=== PATIENT | female | born 1945 | race Caucasian/White ===

== ENCOUNTER → 2016-04-28 | Outpatient (CLI) | payer OTHER ==
[~2016-04-28] MED LIST: ADVIN25050 INH; ALBU1AER9 INH; ATOR-14 PO; ATV/1 PO; B-COTAB18 PO; CALC1CHW65 PO; CHOL100010 PO; CZR50 PO; FURO80TA63 PO; IBUP-1050 PO; LEVO125T72 PO; MELA5CAP PO; METO50TA16 PO; MULT-188 PO; MULT-506 PO; PANT40TA PO; POTA10CA28 PO; SNG10 PO
[2016-04-28 18:02] LABS: THYROID STIMULATING HORMONE 4.7 uIu/ml (0.300-4.500)
== END | disposition home or self-care (01) ==
LOC: C.LABPVFM 11:02
PROVIDERS: ATTEND Internal Medicine Endocrinology, Diabetes & Metabolism
DX: E03.9 Hypothyroidism, unspecified (principal)

== ENCOUNTER → 2016-05-19 | Outpatient (CLI) | payer OTHER | END | disposition home or self-care (01) | LOC: C.MAMM 11:26 | PROVIDERS: ATTEND Internal Medicine Endocrinology, Diabetes & Metabolism | DX: M81.0 Age-related osteoporosis without current pathological fracture (principal); E55.9 Vitamin D deficiency, unspecified; M85.80 Other specified disorders of bone density and structure, unspecified site; Z78.0 Asymptomatic menopausal state; Z82.62 Family history of osteoporosis ==

== ENCOUNTER → 2016-06-18 | Outpatient (CLI) | payer OTHER ==
[2016-06-18 12:59] LABS: ALT/SGPT 24 U/L (12-78); AST/SGOT 21 U/L (15-37); BLOOD UREA NITROGEN 27 mg/dl (7-18); BUN/CREATININE RATIO 28.3 (10-20); CALCIUM 8.5 mg/dl (8.5-10.1); CARBON DIOXIDE 30 mmol/L (21-32); CHLORIDE 105 mmol/L (98-107); CREATININE 0.97 mg/dl (0.60-1.20); GLUCOSE 109 mg/dl (70-99); POTASSIUM 4.4 mmol/L (3.5-5.1); SODIUM 141 mmol/L (136-145); TRIGLYCERIDES 136 mg/dl (0-150); VERY LOW DENSITY LIPOPROT CALC 27 mg/dl
[2016-06-18 13:01] LABS: ALB/GLOB RATIO 1.1 (0.9-2); ALKALINE PHOSPHATASE 72 U/L (45-117); CHOLESTEROL 159 mg/dl (0-200); CHOLESTEROL/HDL RATIO 3.2; HDL CHOLESTEROL 50 mg/dl; LDL CHOLESTEROL CALCULATED 82 mg/dl
[2016-06-18 13:06] LABS: THYROID STIMULATING HORMONE 4.66 uIu/ml (0.300-4.500)
[2016-06-18 13:31] LABS: ESTIMATED AVERAGE GLUCOSE 140 mg/dl; HA1C FLAG Normal (Normal)
== END | disposition home or self-care (01) ==
LOC: C.LABPVFM 09:12
PROVIDERS: ATTEND Internal Medicine Endocrinology, Diabetes & Metabolism
DX: R73.9 Hyperglycemia, unspecified (principal); E03.9 Hypothyroidism, unspecified; I10 Essential (primary) hypertension; E55.9 Vitamin D deficiency, unspecified; M81.0 Age-related osteoporosis without current pathological fracture; E06.3 Autoimmune thyroiditis; E78.5 Hyperlipidemia, unspecified

== ENCOUNTER → 2016-08-11 | Outpatient (CLI) | payer OTHER ==
--- NOTE | 2016-08-11 13:35 | DIAGNOSTIC IMAGING REPORT ---
CHEST 2 VIEWS ROUTINE HISTORY: LIGHTHEADED COMPARISON: Chest 05/15/2013. FINDINGS: The heart remains top normal in size. Poststernotomy changes. S-shaped scoliosis persist. No focal lung consolidations to suggest pneumonia. No evidence for pulmonary edema. No pleural effusions. No pneumothorax. Linear scarlike density at the left lower lobe favors scarring or atelectasis. IMPRESSION: No significant change compared to the prior study. No acute process. Electronically signed by: Roni Leonard M.D. 08/11/2016 1:33 PM Dictated Date/Time: 08/11/2016 1:31 PM
[2016-08-11 17:23] LABS: BASO % 0.5 %; BASO ABS # 0.03 K/uL (0-0.2); EOS % 1.3 %; HEMATOCRIT 40.2 % (37-47); IG% 0.3 %; LYMPH % 26.7 %; LYMPH ABS # 1.65 K/uL (1.2-3.4); MEAN CELL VOLUME 86.6 fL (80-100); MEAN CORPUSCULAR HEMOGLOBIN 28.7 pg (25-34); MEAN CORPUSCULAR HGB CONC 33.1 g/dl (32-36); MEAN PLATELET VOLUME 9.3 fL (7.4-10.4); MONO % 8.1 %; NEUT % 63.1 %; PLATELET COUNT 331 K/uL (130-400); RED BLOOD COUNT 4.64 M/uL (4.2-5.4); WHITE BLOOD COUNT 6.18 K/uL (4.8-10.8)
[2016-08-11 17:38] LABS: ESTIMATED AVERAGE GLUCOSE 143 mg/dl; HA1C FLAG Normal (Normal)
[2016-08-11 17:48] LABS: COMPLETE YES
== END | disposition home or self-care (01) ==
LOC: C.RADPV 13:14
PROVIDERS: ATTEND Family Medicine
DX: R42 Dizziness and giddiness (principal); R61 Generalized hyperhidrosis; E11.9 Type 2 diabetes mellitus without complications; F41.8 Other specified anxiety disorders

== ENCOUNTER → 2016-08-26 | Outpatient (CLI) | payer OTHER ==
[2016-08-26 17:51] LABS: CALCIUM 9.3 mg/dl (8.5-10.1)
[2016-08-26 18:07] LABS: THYROID STIMULATING HORMONE 0.499 uIu/ml (0.300-4.500)
== END | disposition home or self-care (01) ==
LOC: C.LABPVFM 11:38
PROVIDERS: ATTEND Internal Medicine Endocrinology, Diabetes & Metabolism
DX: I10 Essential (primary) hypertension (principal); M81.0 Age-related osteoporosis without current pathological fracture; E06.3 Autoimmune thyroiditis; E03.9 Hypothyroidism, unspecified

== ENCOUNTER → 2016-10-21 | Outpatient (CLI) | payer OTHER | END | disposition home or self-care (01) | LOC: C.CPL 10:45 | PROVIDERS: ATTEND Orthopaedic Surgery Sports Medicine | DX: M66.872 Spontaneous rupture of other tendons, left ankle and foot (principal) ==

== ENCOUNTER → 2016-11-06 | Outpatient (CLI) | payer OTHER ==
[2016-11-06 17:58] LABS: BLOOD UREA NITROGEN 25 mg/dl (7-18); BUN/CREATININE RATIO 28.2 (10-20); CALCIUM 10.3 mg/dl (8.5-10.1); CARBON DIOXIDE 34 mmol/L (21-32); CHLORIDE 104 mmol/L (98-107); CREATININE 0.89 mg/dl (0.60-1.20); GLUCOSE 129 mg/dl (70-99); POTASSIUM 3.6 mmol/L (3.5-5.1); SODIUM 145 mmol/L (136-145)
== END | disposition home or self-care (01) ==
LOC: C.LABPVFM 15:46
PROVIDERS: ATTEND Nurse Practitioner
DX: E87.6 Hypokalemia (principal)

== ENCOUNTER → 2016-11-20 | Outpatient (CLI) | payer OTHER ==
[2016-11-20 12:27] LABS: ALT/SGPT 27 U/L (12-78); BLOOD UREA NITROGEN 21 mg/dl (7-18); BUN/CREATININE RATIO 21.5 (10-20); CALCIUM 9.4 mg/dl (8.5-10.1); CARBON DIOXIDE 29 mmol/L (21-32); CHLORIDE 104 mmol/L (98-107); CHOLESTEROL 181 mg/dl (0-200); CREATININE 0.99 mg/dl (0.60-1.20); GLUCOSE 103 mg/dl (70-99); POTASSIUM 3.8 mmol/L (3.5-5.1); SODIUM 141 mmol/L (136-145)
[2016-11-20 12:37] LABS: ALKALINE PHOSPHATASE 69 U/L (45-117); AST/SGOT 18 U/L (15-37); CHOLESTEROL/HDL RATIO 3.3; HDL CHOLESTEROL 55 mg/dl; LDL CHOLESTEROL CALCULATED 96 mg/dl; TRIGLYCERIDES 149 mg/dl (0-150); VERY LOW DENSITY LIPOPROT CALC 30 mg/dl
[2016-11-20 13:05] LABS: ESTIMATED AVERAGE GLUCOSE 137 mg/dl; HA1C FLAG Normal (Normal)
== END | disposition home or self-care (01) ==
LOC: C.LABPVFM 08:55
PROVIDERS: ATTEND Family Medicine
DX: I10 Essential (primary) hypertension (principal); E03.9 Hypothyroidism, unspecified; E78.5 Hyperlipidemia, unspecified; F41.8 Other specified anxiety disorders; E11.9 Type 2 diabetes mellitus without complications

== ENCOUNTER → 2016-12-16 | Outpatient (CLI) | payer OTHER ==
[2016-12-16 17:44] LABS: BASO % 0.6 %; BASO ABS # 0.04 K/uL (0-0.2); COMPLETE YES; HEMATOCRIT 39.1 % (37-47); IG% 0.3 %; LYMPH % 29.5 %; LYMPH ABS # 2.12 K/uL (1.2-3.4); MEAN CELL VOLUME 86.5 fL (80-100); MEAN CORPUSCULAR HEMOGLOBIN 27.7 pg (25-34); MEAN PLATELET VOLUME 9.1 fL (7.4-10.4); MONO % 4.7 %; NEUT % 63.9 %; PLATELET COUNT 324 K/uL (130-400); RED BLOOD COUNT 4.52 M/uL (4.2-5.4); WHITE BLOOD COUNT 7.19 K/uL (4.8-10.8)
[2016-12-16 17:55] LABS: PROTHROMBIN TIME (PATIENT) 10.7 SECONDS (9.0-12.0)
== END | disposition home or self-care (01) ==
LOC: C.LABPVFM 13:59
PROVIDERS: ATTEND Family Medicine
DX: S20.20XA Contusion of thorax, unspecified, initial encounter (principal); X58.XXXA Exposure to other specified factors, initial encounter

== ENCOUNTER → 2017-01-27 | Outpatient (CLI) | payer OTHER ==
--- NOTE | 2017-01-27 13:17 | MAMMOGRAPHY REPORT ---
BILATERAL DIGITAL SCREENING MAMMOGRAM WITH CAD: 01/27/2017 CLINICAL HISTORY: Routine screening. Patient has no complaints. TECHNIQUE: Bilateral CC and MLO views were obtained. Current study was also evaluated with a Compute r Aided Detection (CAD) system. COMPARISON: Comparison is made to exams dated: 12/24/2015 mammogram, 12/21/2014 mammogram, 12/06/2013 m ammogram, 12/05/2012 mammogram, 12/03/2011 mammogram, and 12/01/2010 mammogram - [facility] ter. BREAST COMPOSITION: There are scattered areas of fibroglandular density in both breasts. FINDINGS: The parenchymal pattern is similar to prior mammograms. No developing mass, architectural distortion or cluster of suspicious microcalcifications is seen in either breast. IMPRESSION: ACR BI-RADS CATEGORY 2: BENIGN There is no mammographic evidence of malignancy. A 1 year screening mammogram is recommended. The pa tient will receive written notification of the results. Approximately 10% of breast cancers are not detected with mammography. A negative mammographic report should not delay biopsy if a clinically suggestive mass is present. Marian Lynch M.D. ay/:01/27/2017 12:27:21 Education Teacher: Paula DE DIOS(Leena)(Monica)([place]), [facility] letter sent: Normal 1/2 BI-RADS Code: ACR BI-RADS Category 2: Benign
== END | disposition home or self-care (01) ==
LOC: C.MAMM 11:14
PROVIDERS: ATTEND Family Medicine
DX: Z12.31 Encounter for screening mammogram for malignant neoplasm of breast (principal)

== ENCOUNTER → 2017-02-19 | Outpatient (CLI) | payer OTHER ==
[2017-02-19 13:08] LABS: ALT/SGPT 20 U/L (12-78); BLOOD UREA NITROGEN 26 mg/dl (7-18); BUN/CREATININE RATIO 33.3 (10-20); CALCIUM 9.2 mg/dl (8.5-10.1); CARBON DIOXIDE 29 mmol/L (21-32); CHLORIDE 105 mmol/L (98-107); CREATININE 0.77 mg/dl (0.60-1.20); GLUCOSE 92 mg/dl (70-99); POTASSIUM 4.2 mmol/L (3.5-5.1); SODIUM 141 mmol/L (136-145)
[2017-02-19 13:11] LABS: ALB/GLOB RATIO 1.1 (0.9-2); ALKALINE PHOSPHATASE 73 U/L (45-117); AST/SGOT 16 U/L (15-37)
== END | disposition home or self-care (01) ==
LOC: C.LABPVFM 10:27
PROVIDERS: ATTEND Family Medicine
DX: E11.9 Type 2 diabetes mellitus without complications (principal)

== ENCOUNTER → 2017-03-05 | Outpatient (CLI) | payer OTHER ==
[2017-03-05 13:10] LABS: CALCIUM 9.3 mg/dl (8.5-10.1)
[2017-03-05 13:25] LABS: THYROID STIMULATING HORMONE 0.944 uIu/ml (0.300-4.500)
[2017-03-05 13:37] LABS: ESTIMATED AVERAGE GLUCOSE 131 mg/dl; HA1C FLAG Normal (Normal)
== END | disposition home or self-care (01) ==
LOC: C.LABPVFM 08:08
PROVIDERS: ATTEND Internal Medicine Endocrinology, Diabetes & Metabolism
DX: E11.9 Type 2 diabetes mellitus without complications (principal); E03.9 Hypothyroidism, unspecified; M81.0 Age-related osteoporosis without current pathological fracture

== ENCOUNTER → 2017-06-18 | Outpatient (CLI) | payer OTHER ==
[2017-06-18 12:54] LABS: ALBUMIN 3.3 gm/dl (3.4-5.0); ALT/SGPT 24 U/L (12-78); AST/SGOT 16 U/L (15-37); BLOOD UREA NITROGEN 28 mg/dl (7-18); CALCIUM 9.6 mg/dl (8.5-10.1); CARBON DIOXIDE 30 mmol/L (21-32); CREATININE 0.77 mg/dl (0.60-1.20); GLUCOSE 101 mg/dl (70-99); POTASSIUM 4.2 mmol/L (3.5-5.1); SODIUM 140 mmol/L (136-145)
[2017-06-18 12:57] LABS: ALKALINE PHOSPHATASE 76 U/L (45-117); CHOLESTEROL 174 mg/dl (0-200); LDL CHOLESTEROL CALCULATED 93 mg/dl; TOTAL PROTEIN 6.6 gm/dl (6.4-8.2)
== END | disposition home or self-care (01) ==
LOC: C.LABPVFM 10:21
PROVIDERS: ATTEND Family Medicine
DX: I10 Essential (primary) hypertension (principal); E03.9 Hypothyroidism, unspecified; K21.9 Gastro-esophageal reflux disease without esophagitis; E11.9 Type 2 diabetes mellitus without complications; E78.5 Hyperlipidemia, unspecified; R42 Dizziness and giddiness; R26.89 Other abnormalities of gait and mobility

== ENCOUNTER → 2017-06-24 | Outpatient (CLI) | payer OTHER ==
--- NOTE | 2017-06-24 11:48 | DIAGNOSTIC IMAGING REPORT ---
R HIP UNILATERAL 2 VIEWS, SACRUM COCCYX MIN 2 VIEWS HISTORY: 71 years-old Female SI JOINT ARTHRITIS acute right hip and sacral pain COMPARISON: None available TECHNIQUE: 2 views of the right hip and 2 views of the sacrum and coccyx FINDINGS: RIGHT HIP: Moderate degenerative changes of the femoral acetabular joint. No acute fracture or subluxation identified. Calcifications of the right hemipelvis suggest phleboliths. SACRUM/COCCYX: There is mild joint space narrowing with subchondral sclerosis and marginal spurring involving the bilateral SI joints. No erosive changes to suggest sacroiliitis. Moderate degenerative changes of the pubic symphysis. Multilevel intervertebral disc space narrowing with endplate spurring and facet arthropathy of the imaged lower lumbar spine. There is 3 mm anterolisthesis L4 on L5 and also of L5 on S1 likely secondary to long-standing facet disease. No acute fracture or subluxation. IMPRESSION: 1. No acute fracture or subluxation identified involving the right hip, sacrum or coccyx. 2. Degenerative changes as above. The above report was generated using voice recognition software. It may contain grammatical, syntax or spelling errors. Electronically signed by: Davian Martinez M.D. 06/24/2017 11:46 AM Dictated Date/Time: 06/24/2017 11:43 AM
== END | disposition home or self-care (01) ==
LOC: C.RADPV 11:23
PROVIDERS: ATTEND Family Medicine
DX: M46.98 Unspecified inflammatory spondylopathy, sacral and sacrococcygeal region (principal)

== ENCOUNTER 2019-04-24 08:26 | Inpatient (IN) ==
[2019-04-24] MEDS ORDERED: ALBUT/IPRATROP 3MG/0.5MG NEB 3 ML VIAL INH STA (08:41)
[2019-04-24] MEDS ORDERED: SODIUM CHLORIDE 0.9% 1000ML 1,000 ML IV SCH (08:45)
--- NOTE | 2019-04-24 08:54 | Emergency Department Note ---
ED Provider Note CHIEF COMPLAINT: Short of breath, cough and congestion HISTORY OF PRESENTING ILLNESS: This is a 73-year-old female who presents to the emergency department by private vehicle with complaint of cough and congestion for the past 5 days and feeling short of breath. She states that this is been getting progressively worse and last night she had difficulty sleeping all night due to feeling short of breath. She has a history of asthma and states she has been using her inhaler but it was not helping last night. She reports some pain in her ribs with coughing, but otherwise denies any chest pain. She has had some chills but is unsure of any fevers. She did have a flu shot. She notes some sick contacts over the holidays with similar symptoms. She denies any headaches, neck pain or stiffness, back pain, abdominal pain, nausea or vomiti ng, urinary complaints, or unusual rash. She rates her pain level as 0/10. She does note that she has had bronchitis 3 times this year and was treated with antibiotics, most recently a few months ago. She denies being treated with steroids. REVIEW OF SYSTEMS: A complete 10 point review of systems was reviewed with the patient with pertinent positives and negatives as per history of present ill ness. All else were negative. PAST MEDICAL HISTORY: Hypertension, hyperlipidemia, type 2 diabetes, asthma, hypothyroidism, osteoporosis, depression and anxiety SOCIAL HISTORY: Lives at home with her , denies tobacco use (her is a smoker) ALLERGIES: Reviewed in chart and with the patient PHYSICAL EXAM: CONSTITUTIONAL: Pleasant and cooperative. Nontoxic-appearing and in no acute distress. Appears to feel generally unwell. Mildly dehydrated. HEENT: Normocephalic, atraumatic. PERRL, EOMI. TMs normal. Pharynx is not injected or erythematous, no tonsillar edema or exudate. Airway patent. Tacky mucous membranes. NECK: Supple, full active range of motion without discomfort. No nuchal rigidity or meningismus. No cervical adenopathy. RESPIRATORY: Diminished throughout with diffuse inspiratory and expiratory wheezing, no crackles, rhonchi, or stridor. Equal expansion bilaterally. CARDIOVASCULAR: Regular rate and rhythm with no murmurs, rubs or gallops. Normal peripheral perfusion, 2+ distal pulses in all 4 extremities. No pitting edema. GASTROINTESTINAL: Soft, nontender, nondistended. No rebound tenderness or guarding. No palpable masses or HSM. Bowel sounds present in all quadrants. No CVA tenderness bilaterally. MUSCULOSKELETAL: Full range of motion of all joints without discomfort. No tenderness or swelling in the calves bilaterally, negative Homans sign. INTEGUMENTARY: No rash or other significant dermatologic conditions noted. NEUROLOGIC: Alert and oriented X 4 with normal affect. Normal strength and sensation in all 4 extremities. Normal speech. Normal gait observed. ED COURSE AND MEDICAL DECISION MAKING: CC: Patient presenting with complaint of short of breath, cough and congestion DIFFERENTIAL DIAGNOSIS: Includes, but not limited to viral URI, bronchitis, pneumonia, asthma exacerbation, COPD, acute coronary syndrome, pulmonary em bolism, aortic dissection, pneumothorax, influenza, among others. INTERPRETATION OF LABS: Mild leukopenia, no anemia, normal platelets, no significant electrolyte abnormalities, normal renal function, normal liver enzymes. Troponin negative. Coagulation factors within normal limits. Influenza A/B negative. Urinalysis negative. IMAGING: XR chest 1V portable CLINICAL HISTORY: Dyspnea dyspnea COMPARISON STUDY: 10/21/2018 FINDINGS: Mild stable cardiomegaly. Diaphragms are smooth. Lungs are clear. Prior median sternotomy. IMPRESSION: Chronic and postoperative change. No acute process. EKG: Shows sinus rhythm with a rate of 84 bpm, normal intervals, frequent PACs, no significant ST or T wave abnormalities, no significant change when compared to previous EKG from 10/21/2018 by my interpretation. MEDICATION RECONCILIATION: I attest that I have personally reviewed the patient's current medication list. INITIAL VITAL SIGNS REVIEW: I reviewed the patient's initial vital signs and interpret them as follows: T: Afebrile; BP: Mildly hypertensive; HR: Mildly tachycardic; RR: Within normal limits; Pulse Ox: Within normal limits on room air. Blood pressure screening: The patient was found to have an elevated blood pressure and was referred to the inpatient team for further management. MDM SUMMARY: Patient was evaluated at bedside, history and physical exam performed. Patient is alert and oriented, in no acute distress, resting in the stretcher. Lungs are diminished throughout with diffuse wheezing, but no respiratory distress, nonlabored breathing and no tachypnea or hypoxia. She does appear mildly dehydrated clinically. No leg pain or swelling. She denies any chest pain. EKG reviewed at bedside, noting sinus rhythm with frequent PACs, no ischemic changes. Orders were placed at bedside for labs, influenza A/B, DuoNeb treatment for wheezing, IV fluid bolus for hydration, chest x-ray to evaluate for cardiopulmonary disease. Patient discussed with Dr. Euceda, who agrees with my assessment, plan, and disposition. Labs and imaging reviewed as above, no significant lab abnormalities noted. Influenza negative. Troponin negative. Chest x-ray is clear with no signs of pneumonia. Patient reassessed multiple times throughout ED stay, she has remained hemod ynamically stable and feels slightly improved after the initial DuoNeb treatment. On reassessment of her lungs she is moving air better, but continues to have diffuse wheezing. She was given additional neb treatments for a total of an hour-long neb as well as 50 mg p.o. prednisone. Nursing staff did notify me that the patient was dropping her sats down into the mid 80s as low as 86% on room air, she was placed on 2 L oxygen. Because of this, I did feel the patient should be admitted. I spoke with Dr. De Los Santos, [facility] Hospitalist, who agrees to evaluate the patient for admission. The patient was updated on all results and plan for admission, she verbalized understanding and was agreeable to this plan. The patient was stable at time of admission. The chart was completed utilizing Draft Speech voice recognition software. Grammatical errors, random word insertions, pronoun errors, and incomplete sentences are an occasional consequence of this system due to software limitations, ambient noise, and hardware issues. Any formal questions or concerns about the content, text, or information contained within the body of this dictation should be directly addressed to the nurse practitioner for clarification. Impression & Plan Acute respiratory failure with hypoxia, Asthma with exacerbation Past Med/Surg History Social History (Updated 03/15/19 @ 09:38 by aThira Geronimo) Preferred Language: [place] Communication Ability: Effective Educational Institution Curator Required: No Beliefs That Will Affect Care: None Current Living Situation: Spouse Other Information That Helps Us Care for You: No Feels Safe at Home: Yes Safety Concerns: Feels Safe At This Time Smoking Status: Never smoker Do You Dip or Chew Tobacco: No ; Second Hand Exposure: Yes ( smokes) ; Tobacco Cessation Education Requested by Patient: No Hx Alcohol Use: Yes Alcohol Intake Frequency Comment: Occasional Hx Substance Use: No Seatbelt Use: always Results & Data Vital Signs Vital Signs - 24 hr 04/24/19 08:28 04/24/19 09:03 04/24/19 09:04 Temperature 36.8 C Temperature Source Oral Pulse Rate 97 H 82 Pulse Rate [Right Finger] Pulse Rate from SpO2 Sensor 84 Pulse Rhythm [Right Finger] Pulse Strength [Right Finger] Respiratory Rate 20 16 Respiratory Effort / Characteristics Non-Labored Non-Labored Respiratory Depth Normal Normal Respiratory Pattern Regular Blood Pressure 134/76 136/76 Blood Pressure [Left Arm] Blood Pressure Mean 95 100 Blood Pressure Mean [Left Arm] Blood Pressure Position [Left Arm] Pulse Oximetry 94 93 93 Oxygen Delivery Method Room Air Room Air Oxygen Flow Rate Sepsis Recent Fever Within 48 Hours No Sepsis New/Unexplained Change in Mental Status No Sepsis Action Taken by Nursing No Action Required Oxygen Flow Rate - Titration Pulse Oximetry Post Tiitration 04/24/19 09:06 04/24/19 09:10 04/24/19 09:15 Temperature Temperature Source Pulse Rate 88 80 Pulse Rate [Right Finger] 86 82 Pulse Rate from SpO2 Sensor 91 H 76 Pulse Rhythm [Right Finger] Pulse Strength [Right Finger] Respiratory Rate 20 18 23 Respiratory Effort / Characteristics Non-Labored Non-Labored Spontaneous Respiratory Depth Normal Respiratory Pattern Blood Pressure Blood Pressure [Left Arm] 136/76 Blood Pressure Mean Blood Pressure Mean [Left Arm] 96 Blood Pressure Position [Left Arm] Pulse Oximetry 93 94 95 Oxygen Delivery Method Room Air Room Air Oxygen Flow Rate Sepsis Recent Fever Within 48 Hours Sepsis New/Unexplained Change in Mental Status Sepsis Action Taken by Nursing Oxygen Flow Rate - Titration Pulse Oximetry Post Tiitration 04/24/19 09:30 04/24/19 09:31 04/24/19 09:45 Temperature Temperature Source Pulse Rate 86 86 84 Pulse Rate [Right Finger] Pulse Rate from SpO2 Sensor 82 85 85 Pulse Rhythm [Right Finger] Pulse Strength [Right Finger] Respiratory Rate 14 22 17 Respiratory Effort / Characteristics Respiratory Depth Respiratory Pattern Blood Pressure 168/82 H Blood Pressure [Left Arm] Blood Pressure Mean 111 Blood Pressure Mean [Left Arm] Blood Pressure Position [Left Arm] Pulse Oximetry 95 95 92 Oxygen Delivery Method Oxygen Flow Rate Sepsis Recent Fever Within 48 Hours Sepsis New/Unexplained Change in Mental Status Sepsis Action Taken by Nursing Oxygen Flow Rate - Titration Pulse Oximetry Post Tiitration 04/24/19 10:00 04/24/19 10:01 04/24/19 10:15 Temperature Temperature Source Pulse Rate 83 85 88 Pulse Rate [Right Finger] 87 Pulse Rate from SpO2 Sensor 86 80 80 Pulse Rhythm [Right Finger] Pulse Strength [Right Finger] Respiratory Rate 19 25 H 21 Respiratory Effort / Characteristics Respiratory Depth Respiratory Pattern Blood Pressure 163/78 H Blood Pressure [Left Arm] 163/78 H Blood Pressure Mean 109 Blood Pressure Mean [Left Arm] 106 Blood Pressure Position [Left Arm] Pulse Oximetry 92 91 90 Oxygen Delivery Method Room Air Oxygen Flow Rate Sepsis Recent Fever Within 48 Hours Sepsis New/Unexplained Change in Mental Status Sepsis Action Taken by Nursing Oxygen Flow Rate - Titration Pulse Oximetry Post Tiitration 04/24/19 10:30 04/24/19 10:31 04/24/19 10:38 Temperature Temperature Source Pulse Rate 92 H 94 H Pulse Rate [Right Finger] 78 Pulse Rate from SpO2 Sensor 94 H 88 Pulse Rhythm [Right Finger] Pulse Strength [Right Finger] Respiratory Rate 14 19 14 Respiratory Effort / Characteristics Non-Labored Spontaneous Respiratory Depth Respiratory Pattern Blood Pressure 132/111 H Blood Pressure [Left Arm] Blood Pressure Mean 128 Blood Pressure Mean [Left Arm] Blood Pressure Position [Left Arm] Pulse Oximetry 94 94 100 Oxygen Delivery Method Room Air Oxygen Flow Rate Sepsis Recent Fever Within 48 Hours Sepsis New/Unexplained Change in Mental Status Sepsis Action Taken by Nursing Oxygen Flow Rate - Titration Pulse Oximetry Post Tiitration 04/24/19 10:45 04/24/19 11:00 04/24/19 11:01 Temperature Temperature Source Pulse Rate 82 103 H 101 H Pulse Rate [Right Finger] Pulse Rate from SpO2 Sensor 82 97 H 99 H Pulse Rhythm [Right Finger] Pulse Strength [Right Finger] Respiratory Rate 22 20 18 Respiratory Effort / Characteristics Respiratory Depth Respiratory Pattern Blood Pressure 163/72 H Blood Pressure [Left Arm] Blood Pressure Mean 105 Blood Pressure Mean [Left Arm] Blood Pressure Position [Left Arm] Pulse Oximetry 100 87 L 96 Oxygen Delivery Method Oxygen Flow Rate Sepsis Recent Fever Within 48 Hours Sepsis New/Unexplained Change in Mental Status Sepsis Action Taken by Nursing Oxygen Flow Rate - Titration Pulse Oximetry Post Tiitration 04/24/19 11:15 04/24/19 11:30 04/24/19 11:31 Temperature Temperature Source Pulse Rate 102 H 101 H 102 H Pulse Rate [Right Finger] 105 H Pulse Rate from SpO2 Sensor 104 H 103 H 101 H Pulse Rhythm [Right Finger] Regular Pulse Strength [Right Finger] Normal Respiratory Rate 20 19 14 Respiratory Effort / Characteristics Non-Labored Spontaneous Respiratory Depth Normal Respiratory Pattern Regular Blood Pressure 160/75 H Blood Pressure [Left Arm] 160/75 H Blood Pressure Mean 109 Blood Pressure Mean [Left Arm] 103 Blood Pressure Position [Left Arm] Sitting Pulse Oximetry 93 93 92 Oxygen Delivery Method Room Air Oxygen Flow Rate Sepsis Recent Fever Within 48 Hours Sepsis New/Unexplained Change in Mental Status Sepsis Action Taken by Nursing Oxygen Flow Rate - Titration Pulse Oximetry Post Tiitration 04/24/19 11:45 04/24/19 12:00 04/24/19 12:01 Temperature Temperature Source Pulse Rate 104 H 99 H 102 H Pulse Rate [Right Finger] Pulse Rate from SpO2 Sensor 107 H 99 H 104 H Pulse Rhythm [Right Finger] Pulse Strength [Right Finger] Respiratory Rate 25 H 21 18 Respiratory Effort / Characteristics Respiratory Depth Respiratory Pattern Blood Pressure 138/73 Blood Pressure [Left Arm] Blood Pressure Mean 107 Blood Pressure Mean [Left Arm] Blood Pressure Position [Left Arm] Pulse Oximetry 93 89 L 86 L Oxygen Delivery Method Nasal Cannula Oxygen Flow Rate 0 Sepsis Recent Fever Within 48 Hours Sepsis New/Unexplained Change in Mental Status Sepsis Action Taken by Nursing Oxygen Flow Rate - Titration 2 Pulse Oximetry Post Tiitration 98 04/24/19 12:21 04/24/19 12:22 04/24/19 12:23 Temperature Temperature Source Pulse Rate 105 H 104 H 104 H Pulse Rate [Right Finger] Pulse Rate from SpO2 Sensor 108 H 106 H 105 H Pulse Rhythm [Right Finger] Pulse Strength [Right Finger] Respiratory Rate 20 17 18 Respiratory Effort / Characteristics Respiratory Depth Respiratory Pattern Blood Pressure 165/76 H Blood Pressure [Left Arm] Blood Pressure Mean 102 Blood Pressure Mean [Left Arm] Blood Pressure Position [Left Arm] Pulse Oximetry 96 98 98 Oxygen Delivery Method Nasal Cannula Nasal Cannula Oxygen Flow Rate 2 2 Sepsis Recent Fever Within 48 Hours Sepsis New/Unexplained Change in Mental Status Sepsis Action Taken by Nursing Oxygen Flow Rate - Titration Pulse Oximetry Post Tiitration 04/24/19 12:30 04/24/19 12:31 04/24/19 12:45 Temperature Temperature Source Pulse Rate 105 H 98 H 104 H Pulse Rate [Right Finger] Pulse Rate from SpO2 Sensor 109 H 98 H 105 H Pulse Rhythm [Right Finger] Pulse Strength [Right Finger] Respiratory Rate 20 20 19 Respiratory Effort / Characteristics Respiratory Depth Respiratory Pattern Blood Pressure 135/92 Blood Pressure [Left Arm] Blood Pressure Mean 111 Blood Pressure Mean [Left Arm] Blood Pressure Position [Left Arm] Pulse Oximetry 98 96 96 Oxygen Delivery Method Oxygen Flow Rate Sepsis Recent Fever Within 48 Hours Sepsis New/Unexplained Change in Mental Status Sepsis Action Taken by Nursing Oxygen Flow Rate - Titration Pulse Oximetry Post Tiitration 04/24/19 13:00 04/24/19 13:01 04/24/19 13:15 Temperature Temperature Source Pulse Rate 100 H 96 H 92 H Pulse Rate [Right Finger] Pulse Rate from SpO2 Sensor 100 H 98 H 92 H Pulse Rhythm [Right Finger] Pulse Strength [Right Finger] Respiratory Rate 23 24 20 Respiratory Effort / Characteristics Respiratory Depth Respiratory Pattern Blood Pressure 128/56 L Blood Pressure [Left Arm] Blood Pressure Mean 84 Blood Pressure Mean [Left Arm] Blood Pressure Position [Left Arm] Pulse Oximetry 98 98 96 Oxygen Delivery Method Oxygen Flow Rate Sepsis Recent Fever Within 48 Hours Sepsis New/Unexplained Change in Mental Status Sepsis Action Taken by Nursing Oxygen Flow Rate - Titration Pulse Oximetry Post Tiitration 04/24/19 13:30 04/24/19 13:31 04/24/19 13:32 Temperature Temperature Source Pulse Rate 101 H 105 H 98 H Pulse Rate [Right Finger] Pulse Rate from SpO2 Sensor 102 H 102 H 93 H Pulse Rhythm [Right Finger] Pulse Strength [Right Finger] Respiratory Rate 20 18 26 H Respiratory Effort / Characteristics Respiratory Depth Respiratory Pattern Blood Pressure 156/67 H Blood Pressure [Left Arm] Blood Pressure Mean 105 Blood Pressure Mean [Left Arm] Blood Pressure Position [Left Arm] Pulse Oximetry 97 96 96 Oxygen Delivery Method Oxygen Flow Rate Sepsis Recent Fever Within 48 Hours Sepsis New/Unexplained Change in Mental Status Sepsis Action Taken by Nursing Oxygen Flow Rate - Titration Pulse Oximetry Post Tiitration 04/24/19 13:45 04/24/19 14:00 04/24/19 14:15 Temperature Temperature Source Pulse Rate 103 H 94 H 93 H Pulse Rate [Right Finger] Pulse Rate from SpO2 Sensor 95 H 93 H 95 H Pulse Rhythm [Right Finger] Pulse Strength [Right Finger] Respiratory Rate 20 18 23 Respiratory Effort / Characteristics Respiratory Depth Respiratory Pattern Blood Pressure 136/81 Blood Pressure [Left Arm] Blood Pressure Mean 95 Blood Pressure Mean [Left Arm] Blood Pressure Position [Left Arm] Pulse Oximetry 95 95 95 Oxygen Delivery Method Oxygen Flow Rate Sepsis Recent Fever Within 48 Hours Sepsis New/Unexplained Change in Mental Status Sepsis Action Taken by Nursing Oxygen Flow Rate - Titration Pulse Oximetry Post Tiitration 04/24/19 14:30 04/24/19 14:31 04/24/19 14:45 Temperature Temperature Source Pulse Rate 99 H 94 H 89 Pulse Rate [Right Finger] Pulse Rate from SpO2 Sensor 98 H 93 H 90 Pulse Rhythm [Right Finger] Pulse Strength [Right Finger] Respiratory Rate 21 20 22 Respiratory Effort / Characteristics Respiratory Depth Respiratory Pattern Blood Pressure 153/91 H Blood Pressure [Left Arm] Blood Pressure Mean 102 Blood Pressure Mean [Left Arm] Blood Pressure Position [Left Arm] Pulse Oximetry 96 94 95 Oxygen Delivery Method Oxygen Flow Rate Sepsis Recent Fever Within 48 Hours Sepsis New/Unexplained Change in Mental Status Sepsis Action Taken by Nursing Oxygen Flow Rate - Titration Pulse Oximetry Post Tiitration 04/24/19 15:00 04/24/19 15:01 04/24/19 15:06 Temperature 36.8 C Temperature Source Oral Pulse Rate 93 H 85 87 Pulse Rate [Right Finger] Pulse Rate from SpO2 Sensor 94 H 86 Pulse Rhythm [Right Finger] Pulse Strength [Right Finger] Respiratory Rate 13 27 H 18 Respiratory Effort / Characteristics Respiratory Depth Respiratory Pattern Blood Pressure 146/104 H 146/104 H Blood Pressure [Left Arm] Blood Pressure Mean 124 Blood Pressure Mean [Left Arm] Blood Pressure Position [Left Arm] Pulse Oximetry 96 96 96 Oxygen Delivery Method Nasal Cannula Oxygen Flow Rate 2 Sepsis Recent Fever Within 48 Hours Sepsis New/Unexplained Change in Mental Status Sepsis Action Taken by Nursing Oxygen Flow Rate - Titration Pulse Oximetry Post Tiitration Laboratory Data Result diagrams: 04/24/19 08:50 04/24/19 08:50 Lab Results 04/24/19 04/24/19 04/24/19 Range/Units 08:45 08:50 08:50 WBC 3.92 L (4.8-10.8) K/uL RBC 4.33 (4.2-5.4) M/uL Hgb 11.9 L (12.0-16.0) g/dL Hct 37.8 (37-47) % MCV 87.3 (80-100) fL MCH 27.5 (25-34) pg MCHC 31.5 L (32-36) g/dL RDW Std Deviation 43.5 (36.4-46.3) fL RDW Coeff of Jeri 13.6 (11.5-14.5) % Plt Count 205 (130-400) K/uL MPV 8.6 (7.4-10.4) fL Immature Gran % (Auto) 0.3 % Neut % (Auto) 64.6 % Lymph % (Auto) 24.7 % [place] % (Auto) 6.6 % Eos % (Auto) 3.3 % Baso % (Auto) 0.5 % Immature Gran # (Auto) 0.01 (0.00-0.02) K/uL Neut # (Auto) 2.53 (1.4-6.5) K/uL Lymph # (Auto) 0.97 L (1.2-3.4) K/uL [place] # (Auto) 0.26 (0.11-0.59) K/uL Eos # (Auto) 0.13 (0-0.5) K/uL Baso # (Auto) 0.02 (0-0.2) K/uL PT 10.3 (9.0-12.0) Seconds INR 1.0 (0.9-1.1) APTT 26.2 (21.0-31.0) Seconds PTT Ratio 1.0 Sodium (136-145) mmol/L Potassium (3.5-5.1) mmol/L Chloride (98-107) mmol/L Carbon Dioxide (21-32) mmol/L Anion Gap (3-11) BUN (7-18) mg/dl Creatinine (0.6-1.2) mg/dl Est Cr Clr Drug Dosing ml/min Est GFR ( Amer) Est GFR (Non-Af Amer) BUN/Creatinine Ratio (10-20) Glucose (70-99) mg/dl Calcium (8.5-10.1) mg/dl Total Bilirubin (0.2-1) mg/dl AST (15-37) U/L ALT (12-78) U/L Alkaline Phosphatase (45-117) U/L Troponin I (0-0.045) ng/ml Total Protein (6.4-8.2) gm/dl Albumin (3.4-5.0) gm/dl Globulin (2.5-4.0) gm/dl Albumin/Globulin Ratio (0.9-2) Urine Color Urine Appearance (Clear) Urine pH (4.5-7.5) Ur Specific [place] (1.000-1.030) Urine Protein (Negative) Urine Glucose (UA) (Negative) Urine Ketones (Negative) Urine Blood (Negative) Urine Nitrite (Negative) Urine Bilirubin (Negative) Urine Urobilinogen (Negative) Ur Leukocyte Esterase (Negative) Influenza Type A (PCR) Neg for Influ A (Neg) Influenza Type B (PCR) Neg for Influ B (Neg) 04/24/19 04/24/19 Range/Units 08:50 12:22 WBC (4.8-10.8) K/uL RBC (4.2-5.4) M/uL Hgb (12.0-16.0) g/dL Hct (37-47) % MCV (80-100) fL MCH (25-34) pg MCHC (32-36) g/dL RDW Std Deviation (36.4-46.3) fL RDW Coeff of Jeri (11.5-14.5) % Plt Count (130-400) K/uL MPV (7.4-10.4) fL Immature Gran % (Auto) % Neut % (Auto) % Lymph % (Auto) % [place] % (Auto) % Eos % (Auto) % Baso % (Auto) % Immature Gran # (Auto) (0.00-0.02) K/uL Neut # (Auto) (1.4-6.5) K/uL Lymph # (Auto) (1.2-3.4) K/uL [place] # (Auto) (0.11-0.59) K/uL Eos # (Auto) (0-0.5) K/uL Baso # (Auto) (0-0.2) K/uL PT (9.0-12.0) Seconds INR (0.9-1.1) APTT (21.0-31.0) Seconds PTT Ratio Sodium 142 (136-145) mmol/L Potassium 4.1 (3.5-5.1) mmol/L Chloride 107 (98-107) mmol/L Carbon Dioxide 31 (21-32) mmol/L Anion Gap 4.0 (3-11) BUN 20 H (7-18) mg/dl Creatinine 0.81 (0.6-1.2) mg/dl Est Cr Clr Drug Dosing 59.4 ml/min Est GFR ( Amer) 84.1 Est GFR (Non-Af Amer) 72.6 BUN/Creatinine Ratio 24.7 H (10-20) Glucose 112 H (70-99) mg/dl Calcium 8.6 (8.5-10.1) mg/dl Total Bilirubin 0.2 (0.2-1) mg/dl AST 13 L (15-37) U/L ALT 21 (12-78) U/L Alkaline Phosphatase 72 (45-117) U/L Troponin I < 0.015 (0-0.045) ng/ml Total Protein 6.3 L (6.4-8.2) gm/dl Albumin 3.1 L (3.4-5.0) gm/dl Globulin 3.2 (2.5-4.0) gm/dl Albumin/Globulin Ratio 1.0 (0.9-2) Urine Color Yellow Urine Appearance Clear (Clear) Urine pH 6.0 (4.5-7.5) Ur Specific [place] 1.009 (1.000-1.030) Urine Protein Negative (Negative) Urine Glucose (UA) Negative (Negative) Urine Ketones Negative (Negative) Urine Blood Negative (Negative) Urine Nitrite Negative (Negative) Urine Bilirubin Negative (Negative) Urine Urobilinogen Negative (Negative) Ur Leukocyte Esterase Negative (Negative) Influenza Type A (PCR) (Neg) Influenza Type B (PCR) (Neg) Administered Medications Discontinued Medications Albuterol (Duoneb) 3 ml INH NOW STA Stop: 04/24/19 08:42 Last Admin: 04/24/19 09:15 Dose: 3 ml Documented by: [id number] Albuterol (Duoneb) 9 ml NEB ONE ONE Stop: 04/24/19 10:23 Last Admin: 04/24/19 10:38 Dose: 9 ml Documented by: [id number] Sodium Chloride (Nss 1000ml) 1,000 mls @ 999 mls/hr IV .Q1H1M FRANCES Stop: 04/24/19 09:45 Last Infusion: 04/24/19 10:41 Dose: 0 mls/hr Documented by: [id number] Admin: 04/24/19 09:15 Dose: 999 mls/hr Documented by: [id number] Prednisone (Prednisone) 50 mg PO NOW STA Stop: 04/24/19 10:23 Last Admin: 04/24/19 10:39 Dose: 50 mg Documented by: [id number] Discharge Plan Visit Data Chief Complaint: Shortness of Breath/Dyspnea Stated Complaint: sob ED Provider: Allan Euceda ED Midlevel Provider: Tatum Rodriguez Discharge Problem: Acute respiratory failure with hypoxia, Asthma with exacerbation Patient Disposition: Admitted As Inpatient Condition: Fair Discharge Instructions Interventions: ED Discharge Assessment Last Done: 04/24/19 15:06 Forms Stand Alone Forms: [facility] [employer] Prescriptions Prescriptions: No Action calcitriol 0.5 mcg capsule 0.5 mcg PO QAM Qty: 180 RF: 0 calcium carbonate 600 mg calcium (1,500 mg) tablet 600 mg PO HS RF: 0 fluticasone propionate 50 mcg/actuation spray,suspension 2 spray intranasal BID Qty: 16 RF: 0 meclizine 25 mg tablet 25 mg PO TID PRN (Reason: Dizziness) Qty: 40 RF: 0 cholecalciferol (vitamin D3) 5,000 unit tablet 5,000 unit PO HS RF: 0 albuterol sulfate 90 mcg/actuation HFA aerosol inhaler 2 puff inhalation DAILY PRN (Reason: Shortness Of Breath Or Wheezing) Qty: 1 RF: 0 multivitamin [Daily Multi-Vitamin] tablet 1 tab PO HS RF: 0 (DME) OneTouch Verio strip See Dose Instructions .ROUTE .MEDSUPPLY Qty: 10 RF: 0 (DME) lancets [OneTouch UltraSoft Lancets] misc See Dose Instructions .ROUTE .MEDSUPPLY Qty: 50 RF: 0 atorvastatin 20 mg tablet 20 mg PO QAM RF: 0 citalopram 10 mg tablet 10 mg PO QAM RF: 0 levothyroxine 100 mcg tablet 100 mcg PO QAM RF: 0 omeprazole 20 mg capsule,delayed release(DR/EC) 20 mg PO QAM RF: 0 hydrochlorothiazide 25 mg tablet 25 mg PO QAM RF: 0 losartan 100 mg tablet 100 mg PO QAM RF: 0 metformin 500 mg tablet extended release 24 hr 500 mg PO QAM RF: 0 Slow-Mag 71.5 mg tablet,delayed release (DR/EC) 71.5 mg PO QAM RF: 0 Referrals Referrals: Jayne Valera MD [Primary Care Provider] -
[2019-04-24 09:04] LABS: Basophils # (auto) 0.02 K/uL (0-0.2); Basophils % (auto) 0.5 %; Eosinophils # (auto) 0.13 K/uL (0-0.5); Eosinophils % (auto) 3.3 %; Hematocrit (blood only) 37.8 % (37-47); Hemoglobin 11.9 g/dL (12.0-16.0); Immature Granulocytes # (auto) 0.01 K/uL (0.00-0.02); Immature Granulocytes % (auto) 0.3 %; Lymphocytes # (auto) 0.97 K/uL (1.2-3.4); Lymphocytes % (auto) 24.7 %; Mean Corpuscular Hemoglobin 27.5 pg (25-34); Mean Corpuscular Hgb Conc 31.5 g/dL (32-36); Mean Corpuscular Volume 87.3 fL (80-100); Mean Platelet Volume 8.6 fL (7.4-10.4); Monocytes # (auto) 0.26 K/uL (0.11-0.59); Monocytes % (auto) 6.6 %; Neutrophils # (auto) 2.53 K/uL (1.4-6.5); Neutrophils % (auto) 64.6 %; Platelet Count 205 K/uL (130-400); RDW Coefficient of Variation 13.6 % (11.5-14.5); RDW Standard Deviation 43.5 fL (36.4-46.3); Red Blood Count 4.33 M/uL (4.2-5.4); White Blood Count 3.92 K/uL (4.8-10.8)
--- NOTE | 2019-04-24 09:07 | XRay Report ---
XR chest 1V portable CLINICAL HISTORY: Dyspnea dyspnea COMPARISON STUDY: 10/21/2018 FINDINGS: Mild stable cardiomegaly. Diaphragms are smooth. Lungs are clear. Prior median sternotomy. IMPRESSION: Chronic and postoperative change. No acute process. ACT 112: Negative or not required by law. The above report was generated using voice recognition software. It may contain grammatical, syntax or spelling errors. Electronically signed by: Corey Olmedo M.D. 04/24/2019 9:06 AM
[2019-04-24 09:11] LABS: Partial Thromboplastin Time 26.2 Seconds (21.0-31.0); Prothrombin Time 10.3 Seconds (9.0-12.0)
[2019-04-24 09:18] LABS: Alanine Aminotransferase 21 U/L (12-78); Albumin Level 3.1 gm/dl (3.4-5.0); Aspartate Aminotransferase 13 U/L (15-37); BUN Creatinine Ratio 24.7 (10-20); Blood Urea Nitrogen 20 mg/dl (7-18); Calcium 8.6 mg/dl (8.5-10.1); Carbon Dioxide 31 mmol/L (21-32); Chloride 107 mmol/L (98-107); Creatinine Clr Calc Pharmacy 59.4 ml/min; Est GFR (African American) 84.1; Est GFR (Non-African American) 72.6; Glucose 112 mg/dl (70-99); Potassium 4.1 mmol/L (3.5-5.1); Sodium 142 mmol/L (136-145)
[2019-04-24 09:22] LABS: Alkaline Phosphatase 72 U/L (45-117); Bilirubin,Total 0.2 mg/dl (0.2-1); Globulin 3.2 gm/dl (2.5-4.0); Total Protein 6.3 gm/dl (6.4-8.2); Troponin I < 0.015 ng/ml (0-0.045)
[2019-04-24 09:31] LABS: Influenza A virus by PCR Neg for Influ A (Neg); Influenza B virus by PCR Neg for Influ B (Neg)
[2019-04-24] MEDS ORDERED: ALBUT/IPRATROP 3MG/0.5MG NEB 3 ML VIAL NEB ONE (10:22)
[2019-04-24] MEDS ORDERED: predniSONE 50 MG TAB PO STA (10:22)
[2019-04-24 12:35] LABS: Appearance Urine Clear (Clear); Bilirubin Urine Negative (Negative); Blood Urine Negative (Negative); Color Urine Yellow; Glucose Urine UA Negative (Negative); Ketones Urine Negative (Negative); Leukocyte Esterase Urine Negative (Negative); Nitrite Urine Negative (Negative); Protein Urine Negative (Negative); Specific Gravity Urine 1.009 (1.000-1.030); Urobilinogen Urine Negative (Negative)
--- NOTE | 2019-04-24 14:15 | History & Physical Report ---
Date of Service April 24, 2019 Assessment & Plan (1) Acute respiratory failure with hypoxia: 73-year-old female with history of asthma presenting with 5 days of progressive shortness of breath and chest congestion. Patient hypoxic on arrival requiring supplemental oxygen. Diminished breath sounds bilaterally with diffuse inspiratory and expiratory wheezing. Findings most consistent with acute exacerbation of asthma in setting of possible URI Admit to medical floor Supplemental oxygen as needed to maintain saturation greater than 94% Albuterol every 2 hours as needed Prednisone 50 mg p.o. daily Magnesium x1 g Continue Flonase Mucinex Nasal saline Incentive spirometer Present on Admission?: Yes (2) Asthma with exacerbation: Plan as above Present on Admission?: Yes (3) Depression with anxiety: Chronic. Stable. Well-controlled on home medication regimen Continue Celexa 10 mg p.o. every morning Present on Admission?: Yes (4) Hypothyroidism: Chronic. Stable. Check TSH with a.m. labs Continue Synthroid 100 mcg p.o. daily Present on Admission?: Yes (5) Hyperlipidemia: Chronic. Stable. Continue atorvastatin 20 mg p.o. every morning Present on Admission?: Yes (6) DM (diabetes mellitus), type 2: Well-controlled. Blood sugar = 112. Patient has not taken metformin recently. Manages her diabetes with diet. Last hemoglobin A1c = 6.4 in April 2018 (prior values of 6.2 and 6.3) Consistent carb diet Monitor blood sugar with a.m. labs. If elevated would add fingersticks and sliding scale coverage Present on Admission?: Yes (7) Hypertension: Blood pressure mildly elevated at 156/67. Continue hydrochlorothiazide 25 mg p.o. every morning Continue Cozaar 100 mg p.o. daily Continue to monitor F/E/N -Hep-Lock. Monitor electrolytes and replete as needed. Consistent carb diet as tolerated ProphylaxisLovenox for DVT prophylaxis Codefull Dispoadmit to medical floor Present on Admission?: Yes History of Present Illness Chief Complaint: Shortness of breath Primary Care Provider: Jayne Valera MD Regina Monzon is a pleasant 73-year-old female presenting with chest congestion and shortness of breath, dry cough and wheeze. Symptoms have been persistent and progressing over the last 5 days. Today she reports her shortness of breath was so severe that she had a difficult time ambulating. She also reports some chills but no fever. She has been taking her albuterol inhaler at home up to 4 times daily with minimal relief. No additional complaints at this time. Specifically, no fever/sweats/malaise. No chest pain/palpitations/orthopnea/weight gain/edema. No abdominal pain/nausea/vomiting/diarrhea/constipation. Patient hypoxic to 86% on room air which improved with 2 L of supplemental oxygen by nasal cannula + Sick contactsfamily member with URI No recent travel ER course - Albuterol, Prednisone, NSS Allergies Allergy/AdvReac Type Severity Reaction Status Date / Time lisinopril Allergy Unknown COUGH Verified 04/24/19 09:13 Home Medications Home Medications Medication Instructions Recorded Confirmed Type calcium carbonate 600 mg calcium 600 mg PO HS tab 10/17/18 04/24/19 History (1,500 mg) tablet cholecalciferol (vitamin D3) 125 5,000 unit PO HS tab 10/17/18 04/24/19 History mcg (5,000 unit) tablet fluticasone propionate 50 2 spray INTRANASAL BID #16 gm 10/17/18 04/24/19 History mcg/actuation nasal spray,suspension meclizine 25 mg tablet 25 mg PO TID PRN #40 tab 10/17/18 04/24/19 History multivitamin 1 tab PO HS 11/28/18 04/24/19 History albuterol sulfate 90 mcg/actuation 2 puff INHALATION DAILY PRN #1 gm 03/15/19 04/24/19 History aerosol inhaler blood sugar diagnostic #10 ea 03/15/19 03/15/19 History lancets #50 ea 03/15/19 03/15/19 History calcitriol 0.5 mcg capsule 0.5 mcg PO QAM #180 cap 03/17/19 04/24/19 History atorvastatin 20 mg PO QAM 04/24/19 04/24/19 History citalopram 10 mg PO QAM 04/24/19 04/24/19 History hydrochlorothiazide 25 mg PO QAM 04/24/19 04/24/19 History levothyroxine 100 mcg PO QAM 04/24/19 04/24/19 History losartan 100 mg PO QAM 04/24/19 04/24/19 History magnesium chloride [Slow-Mag] 71.5 mg PO QAM 04/24/19 04/24/19 History metformin 500 mg PO QAM 04/24/19 04/24/19 History omeprazole 20 mg PO QAM 04/24/19 04/24/19 History Past Med/Surg History Social History (Updated 03/15/19 @ 09:38 by Tahira Geronimo) Preferred Language: Thai Communication Ability: Effective Book Sorter Required: No Beliefs That Will Affect Care: None Current Living Situation: Spouse Other Information That Helps Us Care for You: No Feels Safe at Home: Yes Safety Concerns: Feels Safe At This Time Smoking Status: Never smoker Do You Dip or Chew Tobacco: No ; Second Hand Exposure: Yes ( smokes) ; Tobacco Cessation Education Requested by Patient: No Hx Alcohol Use: Yes Alcohol Intake Frequency Comment: Occasional Hx Substance Use: No Seatbelt Use: always Review of Systems Review of Systems: All systems reviewed & are unremarkable except as noted in HPI & below Physical Exam Physical Exam: General: patient resting comfortably, NAD, non-toxic in appearance, AA&O x 4 Skin: warm, dry, intact, no rashes or lesions HEENT: NC/AT, PERRL, EOMI, anicteric sclera, conjunctiva without injection, external ear normal to inspection and nontender, nares patent, moist mucus membranes, dentition intact, no oropharyngeal lesions, neck supple, trachea midline, no LAD, no thyromegaly, no JVD Heart: +S1/S2, regular, no m/r/g Lungs: Diminished breath sounds bilaterally, + inspiratory and expiratory wheezing, no rales/rhonchi Abd: +BS, soft, NT/ND, no masses/organomegaly/ascites Ext: warm, 2+ pulses in UE/LE bilaterally, no clubbing/cyanosis or edema Neuro: nonfocal, patient AA&O x 4, speech intact, no facial droop, moving all extremities on command with equal strength 5/5 Results & Data Vital Signs (Past 12 Hours) Vital Signs Temp Pulse Pulse Resp BP BP Pulse Ox 04/24/19 13:31 105 H 18 156/67 H 96 04/24/19 13:30 101 H 20 97 04/24/19 13:15 92 H 20 96 04/24/19 13:01 96 H 24 128/56 L 98 04/24/19 13:00 100 H 23 98 04/24/19 12:45 104 H 19 96 12/30/19 12:31 98 H 20 135/92 96 04/24/19 12:30 105 H 20 98 04/24/19 12:23 104 H 18 98 04/24/19 12:22 104 H 17 165/76 H 98 04/24/19 12:21 105 H 20 96 04/24/19 12:01 102 H 18 86 L 04/24/19 12:00 99 H 21 138/73 89 L 04/24/19 11:45 104 H 25 H 93 04/24/19 11:31 102 H 14 92 04/24/19 11:30 101 H 105 H 19 160/75 H 160/75 H 93 04/24/19 11:15 102 H 20 93 04/24/19 11:01 101 H 18 163/72 H 96 04/24/19 11:00 103 H 20 87 L 04/24/19 10:45 82 22 100 04/24/19 10:38 78 14 100 04/24/19 10:31 94 H 19 94 04/24/19 10:30 92 H 14 132/111 H 94 04/24/19 10:15 88 21 90 04/24/19 10:01 85 25 H 91 04/24/19 10:00 83 87 19 163/78 H 163/78 H 92 04/24/19 09:45 84 17 92 04/24/19 09:31 86 22 168/82 H 95 04/24/19 09:30 86 14 95 04/24/19 09:15 80 82 23 95 04/24/19 09:10 88 18 94 04/24/19 09:06 86 20 136/76 93 04/24/19 09:04 93 04/24/19 09:03 82 16 136/76 93 04/24/19 08:28 36.8 C 97 H 20 134/76 94 Laboratory Results Lab Results 04/24/19 04/24/19 04/24/19 Range/Units 08:45 08:50 08:50 WBC 3.92 L (4.8-10.8) K/uL RBC 4.33 (4.2-5.4) M/uL Hgb 11.9 L (12.0-16.0) g/dL Hct 37.8 (37-47) % MCV 87.3 (80-100) fL MCH 27.5 (25-34) pg MCHC 31.5 L (32-36) g/dL RDW Std Deviation 43.5 (36.4-46.3) fL RDW Coeff of Jeri 13.6 (11.5-14.5) % Plt Count 205 (130-400) K/uL MPV 8.6 (7.4-10.4) fL Immature Gran % (Auto) 0.3 % Neut % (Auto) 64.6 % Lymph % (Auto) 24.7 % Garrett % (Auto) 6.6 % Eos % (Auto) 3.3 % Baso % (Auto) 0.5 % Immature Gran # (Auto) 0.01 (0.00-0.02) K/uL Neut # (Auto) 2.53 (1.4-6.5) K/uL Lymph # (Auto) 0.97 L (1.2-3.4) K/uL Garrett # (Auto) 0.26 (0.11-0.59) K/uL Eos # (Auto) 0.13 (0-0.5) K/uL Baso # (Auto) 0.02 (0-0.2) K/uL PT 10.3 (9.0-12.0) Seconds INR 1.0 (0.9-1.1) APTT 26.2 (21.0-31.0) Seconds PTT Ratio 1.0 Sodium (136-145) mmol/L Potassium (3.5-5.1) mmol/L Chloride (98-107) mmol/L Carbon Dioxide (21-32) mmol/L Anion Gap (3-11) BUN (7-18) mg/dl Creatinine (0.6-1.2) mg/dl Est Cr Clr Drug Dosing ml/min Est GFR ( Amer) Est GFR (Non-Af Amer) BUN/Creatinine Ratio (10-20) Glucose (70-99) mg/dl POC Glucose (70-99) Calcium (8.5-10.1) mg/dl Phosphorus (2.5-4.9) mg/dl Magnesium (1.8-2.4) mg/dl Total Bilirubin (0.2-1) mg/dl AST (15-37) U/L ALT (12-78) U/L Alkaline Phosphatase (45-117) U/L Troponin I (0-0.045) ng/ml Total Protein (6.4-8.2) gm/dl Albumin (3.4-5.0) gm/dl Globulin (2.5-4.0) gm/dl Albumin/Globulin Ratio (0.9-2) Urine Color Urine Appearance (Clear) Urine pH (4.5-7.5) Ur Specific Stanton (1.000-1.030) Urine Protein (Negative) Urine Glucose (UA) (Negative) Urine Ketones (Negative) Urine Blood (Negative) Urine Nitrite (Negative) Urine Bilirubin (Negative) Urine Urobilinogen (Negative) Ur Leukocyte Esterase (Negative) Influenza Type A (PCR) Neg for Influ A (Neg) Influenza Type B (PCR) Neg for Influ B (Neg) 04/24/19 04/24/19 04/24/19 Range/Units 08:50 12:22 16:04 WBC (4.8-10.8) K/uL RBC (4.2-5.4) M/uL Hgb (12.0-16.0) g/dL Hct (37-47) % MCV (80-100) fL MCH (25-34) pg MCHC (32-36) g/dL RDW Std Deviation (36.4-46.3) fL RDW Coeff of Jeri (11.5-14.5) % Plt Count (130-400) K/uL MPV (7.4-10.4) fL Immature Gran % (Auto) % Neut % (Auto) % Lymph % (Auto) % Garrett % (Auto) % Eos % (Auto) % Baso % (Auto) % Immature Gran # (Auto) (0.00-0.02) K/uL Neut # (Auto) (1.4-6.5) K/uL Lymph # (Auto) (1.2-3.4) K/uL Garrett # (Auto) (0.11-0.59) K/uL Eos # (Auto) (0-0.5) K/uL Baso # (Auto) (0-0.2) K/uL PT (9.0-12.0) Seconds INR (0.9-1.1) APTT (21.0-31.0) Seconds PTT Ratio Sodium 142 (136-145) mmol/L Potassium 4.1 (3.5-5.1) mmol/L Chloride 107 (98-107) mmol/L Carbon Dioxide 31 (21-32) mmol/L Anion Gap 4.0 (3-11) BUN 20 H (7-18) mg/dl Creatinine 0.81 (0.6-1.2) mg/dl Est Cr Clr Drug Dosing 59.4 ml/min Est GFR ( Amer) 84.1 Est GFR (Non-Af Amer) 72.6 BUN/Creatinine Ratio 24.7 H (10-20) Glucose 112 H (70-99) mg/dl POC Glucose (70-99) Calcium 8.6 (8.5-10.1) mg/dl Phosphorus 2.1 L (2.5-4.9) mg/dl Magnesium 1.8 (1.8-2.4) mg/dl Total Bilirubin 0.2 (0.2-1) mg/dl AST 13 L (15-37) U/L ALT 21 (12-78) U/L Alkaline Phosphatase 72 (45-117) U/L Troponin I < 0.015 (0-0.045) ng/ml Total Protein 6.3 L (6.4-8.2) gm/dl Albumin 3.1 L (3.4-5.0) gm/dl Globulin 3.2 (2.5-4.0) gm/dl Albumin/Globulin Ratio 1.0 (0.9-2) Urine Color Yellow Urine Appearance Clear (Clear) Urine pH 6.0 (4.5-7.5) Ur Specific Stanton 1.009 (1.000-1.030) Urine Protein Negative (Negative) Urine Glucose (UA) Negative (Negative) Urine Ketones Negative (Negative) Urine Blood Negative (Negative) Urine Nitrite Negative (Negative) Urine Bilirubin Negative (Negative) Urine Urobilinogen Negative (Negative) Ur Leukocyte Esterase Negative (Negative) Influenza Type A (PCR) (Neg) Influenza Type B (PCR) (Neg) 04/24/19 04/24/19 Range/Units 16:32 20:42 WBC (4.8-10.8) K/uL RBC (4.2-5.4) M/uL Hgb (12.0-16.0) g/dL Hct (37-47) % MCV (80-100) fL MCH (25-34) pg MCHC (32-36) g/dL RDW Std Deviation (36.4-46.3) fL RDW Coeff of Jeri (11.5-14.5) % Plt Count (130-400) K/uL MPV (7.4-10.4) fL Immature Gran % (Auto) % Neut % (Auto) % Lymph % (Auto) % Garrett % (Auto) % Eos % (Auto) % Baso % (Auto) % Immature Gran # (Auto) (0.00-0.02) K/uL Neut # (Auto) (1.4-6.5) K/uL Lymph # (Auto) (1.2-3.4) K/uL Garrett # (Auto) (0.11-0.59) K/uL Eos # (Auto) (0-0.5) K/uL Baso # (Auto) (0-0.2) K/uL PT (9.0-12.0) Seconds INR (0.9-1.1) APTT (21.0-31.0) Seconds PTT Ratio Sodium (136-145) mmol/L Potassium (3.5-5.1) mmol/L Chloride (98-107) mmol/L Carbon Dioxide (21-32) mmol/L Anion Gap (3-11) BUN (7-18) mg/dl Creatinine (0.6-1.2) mg/dl Est Cr Clr Drug Dosing ml/min Est GFR ( Amer) Est GFR (Non-Af Amer) BUN/Creatinine Ratio (10-20) Glucose (70-99) mg/dl POC Glucose 176 H 132 H (70-99) Calcium (8.5-10.1) mg/dl Phosphorus (2.5-4.9) mg/dl Magnesium (1.8-2.4) mg/dl Total Bilirubin (0.2-1) mg/dl AST (15-37) U/L ALT (12-78) U/L Alkaline Phosphatase (45-117) U/L Troponin I (0-0.045) ng/ml Total Protein (6.4-8.2) gm/dl Albumin (3.4-5.0) gm/dl Globulin (2.5-4.0) gm/dl Albumin/Globulin Ratio (0.9-2) Urine Color Urine Appearance (Clear) Urine pH (4.5-7.5) Ur Specific Stanton (1.000-1.030) Urine Protein (Negative) Urine Glucose (UA) (Negative) Urine Ketones (Negative) Urine Blood (Negative) Urine Nitrite (Negative) Urine Bilirubin (Negative) Urine Urobilinogen (Negative) Ur Leukocyte Esterase (Negative) Influenza Type A (PCR) (Neg) Influenza Type B (PCR) (Neg) Diagnostic Findings XR chest 1V portable CLINICAL HISTORY: Dyspnea dyspnea COMPARISON STUDY: 10/21/2018 FINDINGS: Mild stable cardiomegaly. Diaphragms are smooth. Lungs are clear. Prior median sternotomy. IMPRESSION: Chronic and postoperative change. No acute process. ACT 112: Negative or not required by law. The above report was generated using voice recognition software. It may contain grammatical, syntax or spelling errors. Electronically signed by: Corey Olmedo M.D. 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 Qualified Code(s): E03.8 - Other specified hypothyroidism; E06.3 - Autoimmune thyroiditis (2) Hyperlipidemia Hyperlipidemia type: unspecified Qualified Code(s): E78.5 - Hyperlipidemia, unspecified (3) DM (diabetes mellitus), type 2 Diabetes mellitus residential insulin use: without ballroom dancer use Diabetes mellitus complication status: without complication Qualified Code(s): E11.9 - Type 2 diabetes mellitus without complications (4) Hypertension Hypertension type: essential hypertension Qualified Code(s): I10 - Essential (primary) hypertension (5) Asthma with exacerbation Asthma persistence: unspecified Asthma severity: unspecified severity Qualified Code(s): J45.901 - Unspecified asthma with (acute) exacerbation
[2019-04-24] MEDS ORDERED: MAGNESIUM SULFATE / D5W 1 GM/100 ML BAG IV ONE (15:47)
[2019-04-24] MEDS ORDERED: SODIUM CHLORIDE 0.65% NA SOLN 45 ML (OCEAN) PRN (15:47)
[2019-04-24] MEDS: hydroCHLOROthiazide 25 MG TAB PO SCH (16:28)
[2019-04-24] MEDS: ATORVASTATIN 20 MG TAB PO SCH (16:28)
[2019-04-24] MEDS: CALCITRIOL 0.25 MCG CAPSULE PO SCH (16:28)
[2019-04-24] MEDS: LOSARTAN POTASSIUM 50 MG TAB PO SCH (16:29)
[2019-04-24] MEDS: LEVOTHYROXINE SODIUM 100 MCG TABLET PO SCH (16:29)
[2019-04-24] MEDS: PANTOprazole 40 MG TAB PO SCH (16:30)
[2019-04-24 16:44] LABS: Magnesium 1.8 mg/dl (1.8-2.4); Phosphorus 2.1 mg/dl (2.5-4.9)
[2019-04-24] MEDS: CALCIUM 600MG + VIT D 400 IU TAB PO SCH (20:17)
[2019-04-24] MEDS: FLUTICASONE PROPIONATE NA SPR 16 GM BTL SCH (20:17)
[2019-04-24] MEDS: CHOLECALCIFEROL 1,000 UNITS TAB PO SCH (20:18)
[2019-04-24] MEDS: guaiFENesin 600 MG TABCR PO SCH (20:18)
[2019-04-24] MEDS ORDERED: SODIUM PHOSPHATE 3 MMOL/1 ML INFUSION IV STA (20:48)
[2019-04-24] MEDS ORDERED: SODIUM PHOSPHATE 9 MMOL in SODIUM CHLORIDE 0.9% 250 ML IV ONE (21:00)
[2019-04-24] MEDS: ALBUTEROL 0.5% NEB SOLN 2.5 MG/0.5 ML VIAL NEB PRN (23:26)
[2019-04-25] MEDS: ACETAMINOPHEN 325 MG TAB PO PRN ×2 (00:11→23:41)
[2019-04-25] MEDS: ALBUTEROL 0.5% NEB SOLN 2.5 MG/0.5 ML VIAL NEB PRN ×3 (02:15→23:00)
[2019-04-25] MEDS: LEVOTHYROXINE SODIUM 100 MCG TABLET PO SCH (05:47)
[2019-04-25 08:15] LABS: Basophils # (auto) 0.01 K/uL (0-0.2); Basophils % (auto) 0.2 %; Hematocrit (blood only) 37.7 % (37-47); Immature Granulocytes # (auto) 0.02 K/uL (0.00-0.02); Immature Granulocytes % (auto) 0.4 %; Lymphocytes # (auto) 0.63 K/uL (1.2-3.4); Lymphocytes % (auto) 14.1 %; Mean Corpuscular Hemoglobin 27.6 pg (25-34); Mean Corpuscular Hgb Conc 31.8 g/dL (32-36); Mean Corpuscular Volume 86.7 fL (80-100); Mean Platelet Volume 8.5 fL (7.4-10.4); Monocytes # (auto) 0.35 K/uL (0.11-0.59); Monocytes % (auto) 7.8 %; Neutrophils # (auto) 3.45 K/uL (1.4-6.5); Neutrophils % (auto) 77.5 %; Platelet Count 192 K/uL (130-400); RDW Coefficient of Variation 13.6 % (11.5-14.5); RDW Standard Deviation 43.1 fL (36.4-46.3); Red Blood Count 4.35 M/uL (4.2-5.4); White Blood Count 4.46 K/uL (4.8-10.8)
[2019-04-25] MEDS: FLUTICASONE PROPIONATE NA SPR 16 GM BTL SCH ×2 (08:49→20:11)
[2019-04-25] MEDS: CALCITRIOL 0.25 MCG CAPSULE PO SCH (08:51)
[2019-04-25] MEDS: ATORVASTATIN 20 MG TAB PO SCH (08:52)
[2019-04-25] MEDS: hydroCHLOROthiazide 25 MG TAB PO SCH (08:52)
[2019-04-25] MEDS: ENOXAPARIN INJ 40 MG/0.4 ML SYR SQ SCH (08:52)
[2019-04-25] MEDS: predniSONE 50 MG TAB PO SCH (08:53)
[2019-04-25] MEDS: guaiFENesin 600 MG TABCR PO SCH ×2 (08:53→20:12)
[2019-04-25] MEDS: CITALOPRAM 20 MG TAB PO SCH (08:53)
[2019-04-25] MEDS: PANTOprazole 40 MG TAB PO SCH (08:54)
[2019-04-25] MEDS: LOSARTAN POTASSIUM 50 MG TAB PO SCH (08:54)
[2019-04-25] MEDS: MAGNESIUM CHLORIDE 64MG DELAYED REL TAB PO SCH (08:55)
[2019-04-25 09:40] LABS: Creatinine Clr Calc Pharmacy 60.9 ml/min; Est GFR (African American) 86.7; Est GFR (Non-African American) 74.8; Potassium 3.6 mmol/L (3.5-5.1)
[2019-04-25 09:51] LABS: Thyroid Stimulating Hormone 0.421 uIu/ml (0.300-4.500)
[2019-04-25 12:48] LABS: Estimated Average Glucose 143 mg/dl; Hemoglobin A1C 6.6 % (4.5-5.6)
[2019-04-25] MEDS: CHOLECALCIFEROL 1,000 UNITS TAB PO SCH (20:11)
[2019-04-25] MEDS: CALCIUM 600MG + VIT D 400 IU TAB PO SCH (20:13)
--- NOTE | 2019-04-25 23:10 | Hospitalist Progress Note ---
Date of Service April 25, 2019 Assessment & Plan (1) Acute respiratory failure with hypoxia: 73-year-old female with history of asthma presenting with 5 days of progressive shortness of breath and chest congestion. Patient hypoxic on arrival requiring supplemental oxygen. Diminished breath sounds bilaterally with diffuse inspiratory and expiratory wheezing. Findings most consistent with acute exacerbation of asthma in setting of possible URI Admitted to medical floor Supplemental oxygen as needed to maintain saturation greater than 94% Albuterol every 2 hours as needed Prednisone 50 mg p.o. daily Magnesium x1 g Continue Flonase Mucinex Nasal saline Incentive spirometer -Plan is to continue to keep patient for another night. Patient has improved, but continues to require neb treatments, once this subsides will feel more comfortable discharging patient. Hopefully can be discharged on 04/26 (2) Asthma with exacerbation: Plan as above (3) Depression with anxiety: Chronic. Stable. Well-controlled on home medication regimen Continue Celexa 10 mg p.o. every morning (4) Hypothyroidism: Chronic. Stable. Check TSH with a.m. labs Continue Synthroid 100 mcg p.o. daily (5) Hyperlipidemia: Chronic. Stable. Continue atorvastatin 20 mg p.o. every morning (6) DM (diabetes mellitus), type 2: Well-controlled. Blood sugar = 112. Patient has not taken metformin recently. Manages her diabetes with diet. Last hemoglobin A1c = 6.4 in April 2018 (prior values of 6.2 and 6.3) Consistent carb diet Monitor blood sugar with a.m. labs. If elevated would add fingersticks and sliding scale coverage (7) Hypertension: Blood pressure mildly elevated at 156/67. Continue hydrochlorothiazide 25 mg p.o. every morning Continue Cozaar 100 mg p.o. daily Continue to monitor F/E/N -Hep-Lock. Monitor electrolytes and replete as needed. Consistent carb diet as tolerated ProphylaxisLovenox for DVT prophylaxis Codefull Subjective Patient feels significantly improved since she was admitted. She states she is breathing better and has been ambulating in her room. She is still requiring though nebs while in the hospital. She ask if she could be discharged on nebs as she does not have them Review of Systems Review of Systems: All systems reviewed & are unremarkable except as noted in HPI & below Physical Exam Physical Exam: General: patient resting comfortably, NAD, non-toxic in appearance, AA&O x 4 Skin: warm, dry, intact, no rashes or lesions HEENT: NC/AT, PERRL, EOMI, anicteric sclera, conjunctiva without injection, external ear normal to inspection and nontender, nares patent, moist mucus membranes, dentition intact, no oropharyngeal lesions, neck supple, trachea midline, no LAD, no thyromegaly, no JVD Heart: +S1/S2, regular, no m/r/g Lungs: Diminished breath sounds bilaterally, +mild wheezing heard, no rales/rhonchi Abd: +BS, soft, NT/ND, no masses/organomegaly/ascites Ext: warm, 2+ pulses in UE/LE bilaterally, no clubbing/cyanosis or edema Neuro: nonfocal, patient AA&O x 4, speech intact, no facial droop, moving all extremities on command with equal strength 5/5 Results & Data Vital Signs (Past 12 Hours) Vital Signs Temp Pulse Resp BP Pulse Ox 04/25/19 15:55 36.9 C 83 20 158/87 H 92 PG Care Time/CCT Total # of Minutes Spent Total Time Spent with Patient: Total time spent is greater than 50% in coordination of care (as documented) at patient's floor/unit and/or counseling patient: (1) DM (diabetes mellitus), type 2 Diabetes mellitus complication status: without complication Diabetes mellitus prison insulin use: without prison use Qualified Code(s): E11.9 - Type 2 diabetes mellitus without complications (2) Hyperlipidemia Hyperlipidemia type: unspecified Qualified Code(s): E78.5 - Hyperlipidemia, unspecified (3) Hypothyroidism 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
[2019-04-26] MEDS: LEVOTHYROXINE SODIUM 100 MCG TABLET PO SCH (06:17)
[2019-04-26] MEDS: MAGNESIUM CHLORIDE 64MG DELAYED REL TAB PO SCH (08:01)
[2019-04-26] MEDS: PANTOprazole 40 MG TAB PO SCH (08:01)
[2019-04-26] MEDS: CALCITRIOL 0.25 MCG CAPSULE PO SCH (08:01)
[2019-04-26] MEDS: hydroCHLOROthiazide 25 MG TAB PO SCH (08:01)
[2019-04-26] MEDS: predniSONE 50 MG TAB PO SCH (08:01)
[2019-04-26] MEDS: guaiFENesin 600 MG TABCR PO SCH (08:01)
[2019-04-26] MEDS: ATORVASTATIN 20 MG TAB PO SCH (08:01)
[2019-04-26] MEDS: ENOXAPARIN INJ 40 MG/0.4 ML SYR SQ SCH (08:01)
[2019-04-26] MEDS: CITALOPRAM 20 MG TAB PO SCH (08:02)
[2019-04-26] MEDS: LOSARTAN POTASSIUM 50 MG TAB PO SCH (08:02)
[2019-04-26] MEDS: FLUTICASONE PROPIONATE NA SPR 16 GM BTL SCH (08:02)
--- NOTE | 2019-04-26 12:04 | Discharge Summary ---
Date of Service April 26, 2019 Admission HPI Per Admitting Provider Regina Monzon is a pleasant 73-year-old female presenting with chest congestion and shortness of breath, dry cough and wheeze. Symptoms have been persistent and progressing over the last 5 days. Today she reports her shortness of breath was so severe that she had a difficult time ambulating. She also reports some chills but no fever. She has been taking her albuterol inhaler at home up to 4 times daily with minimal relief. No additional complaints at this time. Specifically, no fever/sweats/malaise. No chest pain/palpitations/orthopnea/weight gain/edema. No abdominal pain/nausea/vomiting/diarrhea/constipation. Patient hypoxic to 86% on room air which improved with 2 L of supplemental oxygen by nasal cannula + Sick contactsfamily member with URI No recent travel ER course - Albuterol, Prednisone, NSS Principal Diagnosis Asthma exacerbation Discharge Exam Constitutional WD/WN, vitals as above Eyes PERRL, conjunctivae normal, anicteric sclerae ENMT external ear and nose normal, oropharynx normal Neck trachea midline, no thyromegaly Respiratory normal respiratory effort; no respiratory distress and no cough Auscultation: + wheezes (faint, end exhalation bilaterally); no crackles, no rales, no rhonchi and no pleural rub Cardiovascular RRR, no murmur, no edema Gastrointestinal (Abdomen) normal bowel sounds, soft, nontender, no hepatosplenomegaly Musculoskeletal no cyanosis or clubbing, extremities motor strength 5/5 Skin no rashes, warm and dry Neurologic patellar DTR's 2+ bilat, sensation intact and PERRL, EOMI, accommodation nl, no face palsy, no dysarthria Psychiatric A+Ox3, euthymic affect Lymphatic no cervical or axillary lymphadenopathy Discharge Data Allergies Allergy/AdvReac Type Severity Reaction Status Date / Time lisinopril Allergy Unknown COUGH Verified 04/24/19 09:13 Consultations 04/24/19 12:23 ED Decision to Admit Stat Hospital Course (1) Acute respiratory failure with hypoxia: 73-year-old female with history of asthma presenting with 5 days of progressive shortness of breath and chest congestion. Patient hypoxic on arrival requiring supplemental oxygen. Diminished breath sounds bilaterally with diffuse inspiratory and expiratory wheezing. Findings most consistent with acute exacerbation of asthma in setting of possible URI responded well to Prednisone 50mg daily, Albuterol nebulizers breathing comfortably, minimal wheezing on exam has a cough with clear sputum, no hemoptysis breathing well on room air patient says that this is her 3rd exacerbation, prolonged URI this year used to be on Advair for maintenance therapy but was stopped because she was so stable will d/c home on Prednisone taper prescribed Albuterol nebulizer, gave her a script for home nebulizer will prescribed 5 days of Azithromycin for atypical bacterial coverage as she reports her cough is a little more productive Mucinex get rest, stay well hydrated and well nourished follow up with PCP in a week could consider pulmonary referral, updated PFT once she is recovered from this acute episode (2) Asthma with exacerbation: Plan as above (3) Depression with anxiety: Chronic. Stable. Well-controlled on home medication regimen Continue Celexa 10 mg p.o. every morning (4) Hypothyroidism: Chronic. Stable. Continue Synthroid 100 mcg p.o. daily (5) Hyperlipidemia: Chronic. Stable. Continue atorvastatin 20 mg p.o. every morning (6) DM (diabetes mellitus), type 2: Well-controlled. Blood sugar = 112. Patient has not taken metformin recently. Manages her diabetes with diet. Last hemoglobin A1c = 6.4 in April 2018 (prior values of 6.2 and 6.3) Consistent carb diet follow with PCP (7) Hypertension: Blood pressure mildly elevated at 156/67. Continue hydrochlorothiazide 25 mg p.o. every morning Continue Cozaar 100 mg p.o. daily Total Time Total Time Spent Total Time Spent (In Minutes): 33 minutes Total Time Includes: Examination of the Patient, Discharge Planning and Medication Reconciliation Discharge Plan Discharge Items Patient Disposition: Home - Self-Care Reason For Visit: ASTHMA EXACERBATION Discharge Diagnosis: Asthma exacerbation Bronchitis Condition on Discharge: Good Goals: complete course of Prednisone and antibiotics use home nebulizer as needed follow up with Dr. Fernandez Activity: Resume your previous activity Non-emergency contact: Primary Care Provider Call non-emergency contact if: you have any medication questions, your symptoms worsen and you have a fever Follow-up/Referrals: Jayne Valera MD [Primary Care Provider] - Diet: Heart Healthy Addtl Attending Provider Instructions: Medications: - ALBUTEROL NEBULIZER: you can use every 6 hours as needed for wheezing or shortness of breath this medication may be expensive, if too expensive today you can hold off on filling the prescription, perhaps work out with your normal pharmacy tomorrow - PREDNISONE: will taper over next two weeks start t 50mg, decrease by 10mg ever 3 days until complete - ZITHROMAX: take 5 days of 500mg tablet for atypical bacterial coverage - MUCINEX: take twice a day for the next 7 days Asthma exacerbation: improved quickly with steroids and nebulizers will d/c home on Prednisone, Zithromax will prescribe home nebulizer and Albuterol nebulizer medication sometimes the nebulized albuterol can be expensive, no immediate need to fill script today can check with your own pharmacy tomorrow if cost is prohibitive Please call office of Dr. Valera for appointment next week for hospital follow up if you are having more frequent bouts of bronchitis, you may benefit from up to day pulmonary function testing and consider referral to marine mechanic as outpatient Pending Studies at Discharge: No Stand-Alone Forms: My [facility] [employer], Smoking Cessation Medications and DC Order Prescriptions: New albuterol sulfate 2.5 mg/0.5 mL Solution For Nebulization 2.5 mg NEB Q6 PRN (Reason: shortness of breath or wheezing) 30 Days Qty: 30 RF: 0 guaifenesin [Mucinex] 600 mg Tablet Extended Release 12hr 1,200 mg PO Q12 7 Days Qty: 28 RF: 0 prednisone 10 mg tablet 10 mg PO UD Qty: 45 RF: 0 azithromycin 500 mg tablet 500 mg PO DAILY 5 Days Qty: 5 RF: 0 Continued calcitriol 0.5 mcg capsule 0.5 mcg PO QAM Qty: 180 RF: 0 calcium carbonate 600 mg calcium (1,500 mg) tablet 600 mg PO HS RF: 0 fluticasone propionate 50 mcg/actuation spray,suspension 2 spray intranasal BID Qty: 16 RF: 0 meclizine 25 mg tablet 25 mg PO TID PRN (Reason: Dizziness) Qty: 40 RF: 0 cholecalciferol (vitamin D3) 5,000 unit tablet 5,000 unit PO HS RF: 0 albuterol sulfate 90 mcg/actuation HFA aerosol inhaler 2 puff inhalation DAILY PRN (Reason: Shortness Of Breath Or Wheezing) Qty: 1 RF: 0 multivitamin [Daily Multi-Vitamin] tablet 1 tab PO HS RF: 0 (DME) OneTouch Verio strip See Dose Instructions .ROUTE .MEDSUPPLY Qty: 10 RF: 0 (DME) lancets [OneTouch UltraSoft Lancets] misc See Dose Instructions .ROUTE .MEDSUPPLY Qty: 50 RF: 0 atorvastatin 20 mg tablet 20 mg PO QAM RF: 0 citalopram 10 mg tablet 10 mg PO QAM RF: 0 levothyroxine 100 mcg tablet 100 mcg PO QAM RF: 0 omeprazole 20 mg capsule,delayed release(DR/EC) 20 mg PO QAM RF: 0 hydrochlorothiazide 25 mg tablet 25 mg PO QAM RF: 0 losartan 100 mg tablet 100 mg PO QAM RF: 0 metformin 500 mg tablet extended release 24 hr 500 mg PO QAM RF: 0 Slow-Mag 71.5 mg tablet,delayed release (DR/EC) 71.5 mg PO QAM RF: 0 Discharge Orders: Discharge Order (Routine); Ordered 04/26/19 Ordered By: Anatoliy Hobson Admission Data Admit Date/Time: 04/24/19 14:42 Attending Provider: Anatoliy Hobson Admit Provider: Yani De Los Santos Primary Care Provider: Jayne Valera Other Providers: Yani De Los Santos Other Interventions: Discharge Summary Assessment (RN) Last Done: 04/26/19 12:21 DC Date/Time DO NOT enter until pt leaves facility: 04/26/19 12:55
== END 2019-04-26 12:55 | disposition home or self-care (01) | DRG 202 ==
LOC: ED 08:26 → SUATTDRO 14:42 → 2W 14:42